=== PATIENT | female | born 1955 | race Caucasian/White ===

== ENCOUNTER 2019-05-03 06:45 | Inpatient (IN) ==
[2019-05-03] MEDS ORDERED: IPRATROPIUM/ALBUTEROL 3 ML AMPUL.NEB NEB ONE ×2 (07:16→08:02)
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
--- NOTE | 2019-05-03 07:53 | XRay Report ---
CLINICAL INFORMATION:Dyspnea TECHNIQUE: AP portable semiupright chest x-ray COMPARISON: None FINDINGS:Lungs are negative. No parenchymal infiltrate or mass. Heart size and vascularity are normal. Yessenia and mediastinum are negative. There is no pleural fluid. No acute abnormality. IMPRESSION: Negative AP portable chest x-ray Interpreted and Authenticated by: Jesús Harman 05/03/19
[2019-05-03 08:18] LABS: Basophils # (Auto) 0 K/mcL (0.0-0.3); Basophils % (Auto) 0 % (0.0-2.0); Eosinophils # (Auto) 0.2 K/mcL (0.0-0.7); Eosinophils % (Auto) 1.6 % (0.0-7.0); Hemoglobin 15.5 g/dL (12.0-15.0); Lymphocytes % (Auto) 7.3 % (15.5-49.0); Mean Cell Volume 93.6 fL (80.0-100.0); Mean Corpuscular HGB Conc 35.2 g/dL (31.0-36.0); Mean Platelet Volume 7.8 fL (7.4-10.4); Monocytes # (Auto) 0.7 K/mcL (0.1-0.9); Monocytes % (Auto) 5.1 % (1.0-12.0); Platelet Count 359 K/mcL (140-440); Red Cell Distribution Width 12.9 % (11.5-14.5); WBC 13.2 K/mcL (4.5-11.0)
[2019-05-03 08:39] LABS: proBNP 512.1 pg/ml (0-125)
[2019-05-03 08:41] LABS: ALT/SGPT 26 U/l (0-40); AST/SGOT 29 U/l (0-37); Albumin 4.9 gm/dL (3.2-5.2); Albumin/Globulin Ratio 1.6 (1.0-2.3); Alkaline Phosphatase 55 U/L (39-117); Bilirubin,Total 0.3 mg/dL (0.0-1.0); Blood Urea Nitrogen 7 mg/dl (8-23); Calcium 10.6 mg/dl (8.6-10.4); Carbon Dioxide 22 mmol/L (22-30); Chloride 93 mmol/L (96-108); Glomerular Filtration Rate 78; Glucose 118 mg/dL (70-105)
[2019-05-03] MEDS ORDERED: methylPREDNISolone SOD SUCC 125 MG/2 ML VIAL IV ONE (08:42)
[2019-05-03] MEDS ORDERED: methylPREDNISolone SOD SUCC 125 MG/2 ML VIAL IM ONE (08:55)
[2019-05-03] MEDS ORDERED: 0.9 % SODIUM CHLORIDE 1,000 ML IV SCH (10:15)
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
[2019-05-03] MEDS ORDERED: POTASSIUM CHLORIDE 20 MEQ TABLET PO PRN ×2 (12:23)
[2019-05-03] MEDS ORDERED: MAGNESIUM SULFATE 2 GM/50 ML BAG IV PRN (12:23)
[2019-05-03] MEDS ORDERED: POTASSIUM CHLORIDE 40 MEQ in DEXTROSE 5% IN WATER 500 ML IV PRN (12:23)
[2019-05-03] MEDS ORDERED: IPRATROPIUM/ALBUTEROL 3 ML AMPUL.NEB NEB PRN (12:23)
[2019-05-03] MEDS ORDERED: LORazepam 2 MG/ML VIAL IV PRN (12:23)
[2019-05-03] MEDS ORDERED: chlordiazePOXIDE 25 MG CAPSULE PO PRN (12:23)
[2019-05-03] MEDS ORDERED: ONDANSETRON 4 MG/2 ML VIAL IV PRN (12:23)
[2019-05-03] MEDS: IPRATROPIUM/ALBUTEROL 3 ML AMPUL.NEB NEB SCH ×2 (13:09→19:24)
[2019-05-03] MEDS: METOCLOPRAMIDE 10 MG TABLET PO SCH ×3 (13:23→21:23)
[2019-05-03] MEDS: guaiFENesin 600 MG TAB.SR.12H PO SCH ×2 (13:23→21:23)
[2019-05-03] MEDS: AZITHROMYCIN 500 MG in DEXTROSE 5% IN WATER 250 ML IV SCH (13:43)
[2019-05-03 13:59] LABS: Appearance,Urine CLEAR; Bacteria,Urine 0 /hpf (0); Bilirubin,Urine NEG (NEG); Color,Urine YELLOW; Culture Indicated,Urine NO; Glucose,Urine (UA) NEGATIVE (NEG); Ketones,Urine 5/TR mg/dL (NEG); Leukocyte Esterase,Urine NEG /uL (NEG); Mucus,Urine FEW /hpf (0); Nitrate,Urine NEG (NEG); Protein,Urine 100 mg/dL (NEG); Urine Blood NEG mg/dL (<0.03); Urine RBC 3 /hpf (0-1); Urine Squamous Epithelial Cell < 1 /hpf (0-4); Urine Transitional Epi Cells < 1 /hpf (0-2); Urine WBC 0 /hpf (0-4); Urobilinogen,Urine NEG (NEG)
[2019-05-03] MEDS ORDERED: 0.9 % SODIUM CHLORIDE 10 ML SYRINGE IV SCH (14:00)
[2019-05-03] MEDS: 0.9 % SODIUM CHLORIDE 10 ML SYRINGE IV SCH ×2 (14:10→21:25)
[2019-05-03 14:32] LABS: Osmolality,Urine 585 mOsm/kg (80-1000)
[2019-05-03 14:44] LABS: Sodium, Urine Random 46 mmol/L
[2019-05-03] MEDS: methylPREDNISolone SOD SUCC 125 MG/2 ML VIAL IV SCH ×2 (15:16→21:25)
[2019-05-03] MEDS: GABAPENTIN 300 MG CAPSULE PO SCH ×2 (15:16→21:24)
[2019-05-03] MEDS: HYDROCODONE/APAP 7.5/325MG TABLET PO PRN (17:16)
[2019-05-04] MEDS: IPRATROPIUM/ALBUTEROL 3 ML AMPUL.NEB NEB SCH ×4 (00:38→19:15)
[2019-05-04] MEDS: methylPREDNISolone SOD SUCC 125 MG/2 ML VIAL IV SCH ×3 (05:57→21:22)
[2019-05-04] MEDS: 0.9 % SODIUM CHLORIDE 10 ML SYRINGE IV SCH ×3 (05:57→21:30)
[2019-05-04 06:11] LABS: Basophils # (Auto) 0 K/mcL (0.0-0.3); Basophils % (Auto) 0 % (0.0-2.0); Eosinophils # (Auto) 0 K/mcL (0.0-0.7); Eosinophils % (Auto) 0.1 % (0.0-7.0); Granulocytes % (Auto) 94.2 % (38.0-78.0); Hematocrit 40.5 % (36.0-48.0); Hemoglobin 13.5 g/dL (12.0-15.0); Lymphocytes # (Auto) 0.8 K/mcL (1.5-4.8); Lymphocytes % (Auto) 4.5 % (15.5-49.0); Mean Cell Volume 97.2 fL (80.0-100.0); Mean Corpuscular HGB Conc 33.4 g/dL (31.0-36.0); Mean Platelet Volume 7.3 fL (7.4-10.4); Monocytes # (Auto) 0.2 K/mcL (0.1-0.9); Monocytes % (Auto) 1.2 % (1.0-12.0); Platelet Count 327 K/mcL (140-440); RBC 4.17 M/mcL (4.00-5.20); Red Cell Distribution Width 13.7 % (11.5-14.5); WBC 17.3 K/mcL (4.5-11.0)
[2019-05-04] MEDS: ACETAMINOPHEN 325 MG TABLET PO PRN (06:26)
[2019-05-04 06:43] LABS: ALT/SGPT 22 U/l (0-40); AST/SGOT 25 U/l (0-37); Albumin 4.2 gm/dL (3.2-5.2); Albumin/Globulin Ratio 1.4 (1.0-2.3); Alkaline Phosphatase 45 U/L (39-117); Bilirubin,Direct < 0.2 mg/dL (0.0-0.3); Bilirubin,Total 0.2 mg/dL (0.0-1.0); Blood Urea Nitrogen 9 mg/dl (8-23); Calcium 9.4 mg/dl (8.6-10.4); Carbon Dioxide 22 mmol/L (22-30); Globulin 2.9 gm/dL (2.2-3.7); Glomerular Filtration Rate 92; Glucose 170 mg/dL (70-105); Lactate Dehydrogenase 262 U/L (94-250); Phosphorous 3.1 mg/dL (2.7-4.5); Triglycerides 31 mg/dl (<150); Uric Acid 3.8 mg/dL (2.5-8.0)
[2019-05-04 06:46] LABS: Chloride 95 mmol/L (96-108)
[2019-05-04] MEDS: OMEPRAZOLE 20 MG CAPSULE PO SCH (07:04)
--- NOTE | 2019-05-04 07:21 | Internal Med Progress Note ---
Medical - PN: Subj Patient information: Note initiated : 05/04/19 at 7:11 am Service Date, if different from initiated Date: [] Patient: Ivory Diaz a 64 y/o F admitted on 05/03/19 for Shortness of breath. Chief Complaint: [] Interval history: Ms. Diaz is a 64 year old F Who reports shortness of breath since Wednesday night. Patient reports Wednesday night show Kamil night with a sore throat cough and shortness of breath. She does have a sick grandchild which has been around lately. She reports that the symptoms of worsened Wednesday and Wednesday she had a hard time sleeping because of the shortness of breath. She denies any chest pain including pleuritic. No syncope. Denies fevers and chills but has been sweaty. Has body aches. Occasional nausea. No headaches In the ED she was originally 88% on room air. Her proBNP was low and chest x-ray was unremarkable. Troponin was negative. And procalcitonin was low. She did feel some improvement after the nebulizer treatment. He is still smoking. COPD is in her chart. She says she is never officially been diagnosed with COPD but is been mentioned by her primary care doctor. She also is hyponatremic and she says her sodium is been low for a long time. EKG does show some mild ST depression lead II, V3-6. f/u EKG somewhat similar but less prominent. She has no chest pain and troponin is negative. Old ED notes at [facility] mentions diffuse ST depressions suggesting chronic findings. 05/04 Complains of cough and shortness of breath/labored breathing at times, but improved from yesterday. Does have a headache as well. Respiratory viral panel only with rhinovirus. It oxygenation. Review of Systems: denies fever/chills/nausea/vomiting/chest or abdominal pain/diarrhea. Otherwise see above. - Constitutional Vitals: Vital Signs Temp Pulse Resp BP Pulse Ox 97.5 F 90 22 138/90 94 05/04/19 04:00 05/04/19 06:52 05/04/19 06:52 05/04/19 04:00 05/04/19 06:52 Period Temp Pulse Resp BP Sys/Aleman Pulse Ox Last 24 Hr 96.8 F-98.7 F 81-114 14-24 98-139/72-90 88-96 Intake and Output 05/03/19 05/04/19 05/04/19 21:59 05:59 13:59 Intake Total 3350 0 Output Total 950 1200 Balance 2400 -1200 Weight 76.793 kg Intake & Output: Intake & Output 05/03/19 05/04/19 05/04/19 21:59 05:59 13:59 Intake Total 3350 0 Output Total 950 1200 Balance 2400 -1200 Weight 76.793 kg Intake: IV 1250 Sodium Chloride 0.9% 1,000 ml @ 1000 500 mls/hr IV .Q2H [facility] Rx#: [id number] Zithromax 500 mg In Dextrose 5% 250 in Water 250 ml @ 250 mls/hr IV Q24H [facility] Rx#:[id number] Oral 2100 0 Output: Void Amount 950 1200 Other: Meal Lunch Percent of Meal Consumed 50% Feeding Ability Independent Urine Appearance Clear Urine Color Bright Yellow Urine Odor Normal # Voids 1 Exam: General: Alert, Awake, No acute Distress Eyes/N/T: EOMI, Head/Neck: neck supple, CV: mildly Tachycardia but regular, No murmurs, Pulm: better aeration today, expiratory wheezing b/l, Abd: soft, nontender, +BS x4 Ext: no clubbing/cyanosis/edema Neuro: Alert, no focal deficits, moves all extremities, Skin: warm/dry Medical - PN: Obj Da - Labs CBC & Chem 7: 05/04/19 04:34 05/04/19 04:34 Labs: Abnormal Lab Results 05/04/19 05/04/19 05/03/19 04:34 04:34 16:36 WBC 17.3 H Hgb MPV 7.3 L Gran % 94.2 H Lymph % (Auto) 4.5 L Gran # 16.3 H Lymph # (Auto) 0.8 L Sodium 130 L Chloride 95 L BUN Glucose 170 H Osmolality 271 L Calcium Magnesium 1.3 L Lactate Dehydrogenase 262 H NT-Pro-B Natriuret Pep Urine Protein Urine Ketones Urine RBC 05/03/19 05/03/19 05/03/19 13:00 13:00 07:27 WBC Hgb MPV Gran % Lymph % (Auto) Gran # Lymph # (Auto) Sodium 130 L Chloride 93 L BUN 7 L Glucose 118 H Osmolality 583 H Calcium 10.6 H Magnesium Lactate Dehydrogenase NT-Pro-B Natriuret Pep 512.1 H Urine Protein 100 A Urine Ketones 5/tr A Urine RBC 3 H 05/03/19 07:27 WBC 13.2 H Hgb 15.5 H MPV Gran % 86.0 H Lymph % (Auto) 7.3 L Gran # 11.3 H Lymph # (Auto) 1.0 L Sodium Chloride BUN Glucose Osmolality Calcium Magnesium Lactate Dehydrogenase NT-Pro-B Natriuret Pep Urine Protein Urine Ketones Urine RBC Meds: Medications Acetaminophen (Tylenol) 650 mg PO Q6HP PRN PRN Reason: PAIN/FEVER > 101 Last Admin: 05/04/19 06:26 Dose: 650 mg Documented by: Hydrocodone Bitart/Acetaminophen ([place] 7.5/325mg) 1 tab PO Q6H PRN; Protocol PRN Reason: pain Last Admin: 05/03/19 17:16 Dose: 1 tab Documented by: Albuterol/Ipratropium (Duoneb) 3 ml NEB Q6HRT [facility] Last Admin: 05/04/19 06:52 Dose: 3 ml Documented by: Albuterol/Ipratropium (Duoneb) 3 ml NEB Q4HP PRN PRN Reason: Shortness Of Breath Atorvastatin Calcium (Lipitor) 20 mg PO QDAY [facility] Chlordiazepoxide HCl (Librium) 25 mg PO Q4HP PRN PRN Reason: Alcohol Withdrawal Cyanocobalamin (Vitamin B-12) 500 mcg PO DAILY [facility] Enoxaparin Sodium (Lovenox) 40 mg SQ DAILY [facility] Folic Acid (Folic Acid) 1 mg PO DAILY [facility] Gabapentin (Neurontin) 600 mg PO TID [facility] Last Admin: 05/03/19 21:24 Dose: 600 mg Documented by: Guaifenesin (Mucinex) 600 mg PO BID [facility] Last Admin: 05/03/19 21:23 Dose: 600 mg Documented by: Potassium Chloride 40 meq/ (Dextrose) 520 mls @ 130 mls/hr IV UD PRN PRN Reason: Potassium < 3 Magnesium Sulfate (Magnesium Sulfate) 2 gm in 50 mls @ 50 mls/hr IV UD PRN PRN Reason: Magnesium </= 1.6 Azithromycin 500 mg/ Dextrose 250 mls @ 250 mls/hr IV Q24H [facility]; Protocol Stop: 05/05/19 13:59 Last Infusion: 05/03/19 14:43 Dose: Infused Documented by: Lorazepam (Ativan) 0 mg IV Q4HP PRN; Protocol PRN Reason: Alcohol Withdrawal Methylprednisolone Sodium Succinate (Solu-Medrol) 62.5 mg IV Q8 [facility] Last Admin: 05/04/19 05:57 Dose: 62.5 mg Documented by: Metoclopramide HCl (Reglan) 5 mg PO QID [facility] Last Admin: 05/03/19 21:23 Dose: 5 mg Documented by: Omeprazole (Prilosec) 40 mg PO QAMAC [facility] Last Admin: 05/04/19 07:04 Dose: 40 mg Documented by: Ondansetron HCl (Zofran) 4 mg IV Q4HP PRN PRN Reason: Nausea And Vomiting Potassium Chloride (Kdur) 40 meq PO UD PRN PRN Reason: Potssium is 3-3.5 Potassium Chloride (Kdur) 40 meq PO UD PRN PRN Reason: Potassium < 3 Sodium Chloride (Saline Flush) 10 ml IV Q8 [facility] Last Admin: 05/04/19 05:57 Dose: 10 ml Documented by: Thiamine HCl (Vitamin B1) 100 mg PO QDAY [facility] Medical - PN: A/P - Time Spent With Patient Total time spent is greater than 50% in coordination of care (as documented) at patient's floor/unit and/or counseling patient: - Narrative A/P Narrative: A: *Acute hypoxic respiratory failure: -resp viral panel with only Rhinovirus *AECOPD: *Hyponatremia: suspect SIADH even though she is on HCTZ (perhaps a component) *Hyponatremia, chronic: *Hypomag: *h/o cluster RENEE: *HTN/HLD: is on BB/HCTZ/Aldactone *Tobacco/Alcohol abuse: *GERD: * P: -Steroids (wean), nebs polly/prn -empiric Abx -IS/Acapella/RT -O2 support wean as able, possible RT eval prior to d/c for home o2 -fluid restrict, salt tabs -CIWA -cont BB -hold diuretics, will not restart HCTZ -f/u with Pulmonology for PFT's -ppx: Lovenox DNR
[2019-05-04 08:32] LABS: Band Neutrophils % 7 % (0-10); Lymphocytes % 5 % (15-49); Platelet Estimate NORMAL (NORMAL); RBC Morphology NORMAL (NORMAL); Segmented Neutrophils % 88 % (38-78)
[2019-05-04] MEDS ORDERED: LORATADINE 10 MG TABLET PO ONE (08:46)
[2019-05-04] MEDS ORDERED: BENZOCAINE/MENTHOL 1 LOZENGE PO PRN (08:46)
[2019-05-04] MEDS ORDERED: NON FORMULARY MEDICATION 1 DOSE MISCELL (Cyanocobalamin/Folic Acid [Vitamin B12-Folic Acid PO SCH (09:00)
[2019-05-04] MEDS ORDERED: MELATONIN 3 MG TABLET PO SCH (09:00)
[2019-05-04] MEDS: ATORVASTATIN 20 MG TABLET PO SCH (09:06)
[2019-05-04] MEDS: GABAPENTIN 300 MG CAPSULE PO SCH ×3 (09:06→20:54)
[2019-05-04] MEDS: THIAMINE 100 MG TABLET PO SCH (09:07)
[2019-05-04] MEDS: METOCLOPRAMIDE 10 MG TABLET PO SCH ×4 (09:07→20:55)
[2019-05-04] MEDS: FOLIC ACID 1 MG TABLET PO SCH (09:07)
[2019-05-04] MEDS: CYANOCOBALAMIN (VITAMIN B-12) 500 MCG TABLET PO SCH (09:07)
[2019-05-04] MEDS: SODIUM CHLORIDE 1 GM TABLET PO SCH ×3 (09:08→20:55)
[2019-05-04] MEDS: BISOPROLOL 5 MG TABLET PO SCH (09:09)
[2019-05-04] MEDS: guaiFENesin 600 MG TAB.SR.12H PO SCH ×2 (09:09→20:54)
[2019-05-04] MEDS: ENOXAPARIN 40 MG/0.4 ML SYRINGE SQ SCH (09:10)
[2019-05-04] MEDS: AZITHROMYCIN 500 MG in DEXTROSE 5% IN WATER 250 ML IV SCH (09:23)
[2019-05-04] MEDS: HYDROCODONE/APAP 7.5/325MG TABLET PO PRN (20:55)
[2019-05-05] MEDS: IPRATROPIUM/ALBUTEROL 3 ML AMPUL.NEB NEB SCH ×4 (01:19→18:33)
[2019-05-05] MEDS: ACETAMINOPHEN 325 MG TABLET PO PRN (05:28)
[2019-05-05] MEDS: 0.9 % SODIUM CHLORIDE 10 ML SYRINGE IV SCH ×3 (05:28→21:08)
[2019-05-05] MEDS: methylPREDNISolone SOD SUCC 125 MG/2 ML VIAL IV SCH (05:28)
[2019-05-05 05:29] LABS: Hematocrit 39.9 % (36.0-48.0); Hemoglobin 13.2 g/dL (12.0-15.0); Mean Cell Volume 98.1 fL (80.0-100.0); Mean Platelet Volume 7.3 fL (7.4-10.4); Platelet Count 329 K/mcL (140-440); RBC 4.07 M/mcL (4.00-5.20); Red Cell Distribution Width 13.5 % (11.5-14.5)
[2019-05-05 05:50] LABS: Band Neutrophils % 4 % (0-10); Lymphocytes % 6 % (15-49); Monocytes % (Manual) 3 % (1-12); Platelet Estimate NORMAL (NORMAL); RBC Morphology NORMAL (NORMAL); Segmented Neutrophils % 87 % (38-78)
[2019-05-05 05:52] LABS: ALT/SGPT 23 U/l (0-40); AST/SGOT 24 U/l (0-37); Albumin 3.7 gm/dL (3.2-5.2); Albumin/Globulin Ratio 1.3 (1.0-2.3); Alkaline Phosphatase 41 U/L (39-117); Bilirubin,Direct < 0.2 mg/dL (0.0-0.3); Bilirubin,Total < 0.2 mg/dL (0.0-1.0); Blood Urea Nitrogen 14 mg/dl (8-23); Calcium 8.9 mg/dl (8.6-10.4); Carbon Dioxide 22 mmol/L (22-30); Chloride 96 mmol/L (96-108); Globulin 2.8 gm/dL (2.2-3.7); Glomerular Filtration Rate 78; Glucose 145 mg/dL (70-105); Lactate Dehydrogenase 213 U/L (94-250); Triglycerides 42 mg/dl (<150); Uric Acid 3.4 mg/dL (2.5-8.0)
[2019-05-05] MEDS: CYANOCOBALAMIN (VITAMIN B-12) 500 MCG TABLET PO SCH (07:49)
[2019-05-05] MEDS: THIAMINE 100 MG TABLET PO SCH (07:49)
[2019-05-05] MEDS: ATORVASTATIN 20 MG TABLET PO SCH (07:49)
[2019-05-05] MEDS: FOLIC ACID 1 MG TABLET PO SCH (07:49)
[2019-05-05] MEDS: guaiFENesin 600 MG TAB.SR.12H PO SCH ×2 (07:49→21:08)
[2019-05-05] MEDS: SODIUM CHLORIDE 1 GM TABLET PO SCH ×3 (07:49→21:08)
[2019-05-05] MEDS: BISOPROLOL 5 MG TABLET PO SCH (07:49)
[2019-05-05] MEDS: ENOXAPARIN 40 MG/0.4 ML SYRINGE SQ SCH (07:50)
[2019-05-05] MEDS: GABAPENTIN 300 MG CAPSULE PO SCH ×3 (07:50→21:08)
[2019-05-05] MEDS: METOCLOPRAMIDE 10 MG TABLET PO SCH ×4 (07:50→21:08)
[2019-05-05] MEDS: OMEPRAZOLE 20 MG CAPSULE PO SCH (07:50)
[2019-05-05] MEDS ORDERED: predniSONE 20 MG TABLET PO ONE (08:57)
--- NOTE | 2019-05-05 09:03 | Internal Med Progress Note ---
Medical - PN: Subj Patient information: Note initiated : 05/05/19 at 8:57 am Service Date, if different from initiated Date: [] Patient: Ivory Diaz a 64 y/o F admitted on 05/03/19 for Shortness of breath. Chief Complaint: [] Interval history: Ms. Diaz is a 64 year old F Who reports shortness of breath since Wednesday night. Patient reports Wednesday night show Kamil night with a sore throat cough and shortness of breath. She does have a sick grandchild which has been around lately. She reports that the symptoms of worsened Wednesday and Wednesday she had a hard time sleeping because of the shortness of breath. She denies any chest pain including pleuritic. No syncope. Denies fevers and chills but has been sweaty. Has body aches. Occasional nausea. No headaches In the ED she was originally 88% on room air. Her proBNP was low and chest x-ray was unremarkable. Troponin was negative. And procalcitonin was low. She did feel some improvement after the nebulizer treatment. He is still smoking. COPD is in her chart. She says she is never officially been diagnosed with COPD but is been mentioned by her primary care doctor. She also is hyponatremic and she says her sodium is been low for a long time. EKG does show some mild ST depression lead II, V3-6. f/u EKG somewhat similar but less prominent. She has no chest pain and troponin is negative. Old ED notes at [facility] mentions diffuse ST depressions suggesting chronic findings. 05/04 Complains of cough and shortness of breath/labored breathing at times, but improved from yesterday. Does have a headache as well. Respiratory viral panel only with rhinovirus. It oxygenation. 05/05-patient seen in room along with . Doing well. Now on room air. Persistent cough on minimal exertion along with worsening dyspnea. Transition to oral steroids. Anticipate discharge in 24 hours pending clinical improvement. Continue PT OT nutrition support. - Constitutional Vitals: Vital Signs Temp Pulse Resp BP Pulse Ox 97.7 F 77 18 127/77 92 05/05/19 07:26 05/05/19 07:07 05/05/19 07:26 05/05/19 07:26 05/05/19 07:26 Period Temp Pulse Resp BP Sys/Aleman Pulse Ox Last 24 Hr 97.7 F-98.5 F 71-104 14-90 108-140/70-88 90-98 Intake and Output 05/04/19 05/05/19 05/05/19 21:59 05:59 13:59 Intake Total 100 300 240 Output Total 850 1000 Balance -750 -700 240 Weight 169 lb 11.2 oz Intake & Output: Intake & Output 05/04/19 05/05/19 05/05/19 21:59 05:59 13:59 Intake Total 100 300 240 Output Total 850 1000 Balance -750 -700 240 Weight 169 lb 11.2 oz Intake: Oral 100 300 240 Output: Void Amount 850 1000 Other: Meal Breakfast Percent of Meal Consumed 100% Urine Appearance Clear Urine Color Bright Yellow Bright Yellow General appearance: no acute distress Exam: Alert oriented Minimally labored breathing No anxiety No lymphedema Medical - PN: Obj Da - Labs CBC & Chem 7: 05/05/19 04:17 05/05/19 04:17 Labs: Abnormal Lab Results 05/05/19 05/05/19 05/04/19 04:17 04:17 04:34 WBC 23.0 H Hgb MPV 7.3 L Gran % Lymph % (Auto) Gran # Lymph # (Auto) Seg Neutrophils % 87 H 88 H Lymphocytes % 6 L 5 L Sodium 131 L Chloride BUN Glucose 145 H Osmolality Calcium Magnesium Lactate Dehydrogenase NT-Pro-B Natriuret Pep Urine Protein Urine Ketones Urine RBC 05/04/19 05/04/19 05/03/19 04:34 04:34 16:36 WBC 17.3 H Hgb MPV 7.3 L Gran % 94.2 H Lymph % (Auto) 4.5 L Gran # 16.3 H Lymph # (Auto) 0.8 L Seg Neutrophils % Lymphocytes % Sodium 130 L Chloride 95 L BUN Glucose 170 H Osmolality 271 L Calcium Magnesium 1.3 L Lactate Dehydrogenase 262 H NT-Pro-B Natriuret Pep Urine Protein Urine Ketones Urine RBC 05/03/19 05/03/19 05/03/19 13:00 13:00 07:27 WBC Hgb MPV Gran % Lymph % (Auto) Gran # Lymph # (Auto) Seg Neutrophils % Lymphocytes % Sodium 130 L Chloride 93 L BUN 7 L Glucose 118 H Osmolality 583 H Calcium 10.6 H Magnesium Lactate Dehydrogenase NT-Pro-B Natriuret Pep 512.1 H Urine Protein 100 A Urine Ketones 5/tr A Urine RBC 3 H 05/03/19 07:27 WBC 13.2 H Hgb 15.5 H MPV Gran % 86.0 H Lymph % (Auto) 7.3 L Gran # 11.3 H Lymph # (Auto) 1.0 L Seg Neutrophils % Lymphocytes % Sodium Chloride BUN Glucose Osmolality Calcium Magnesium Lactate Dehydrogenase NT-Pro-B Natriuret Pep Urine Protein Urine Ketones Urine RBC Meds: Medications Acetaminophen (Tylenol) 650 mg PO Q6HP PRN PRN Reason: PAIN/FEVER > 101 Last Admin: 05/05/19 05:28 Dose: 650 mg Documented by: Hydrocodone Bitart/Acetaminophen ([place] 7.5/325mg) 1 tab PO Q6H PRN; Protocol PRN Reason: pain Last Admin: 05/04/19 20:55 Dose: 1 tab Documented by: Albuterol/Ipratropium (Duoneb) 3 ml NEB Q6HRT [facility] Last Admin: 05/05/19 07:06 Dose: 3 ml Documented by: Albuterol/Ipratropium (Duoneb) 3 ml NEB Q4HP PRN PRN Reason: Shortness Of Breath Atorvastatin Calcium (Lipitor) 20 mg PO QDAY [facility] Last Admin: 05/05/19 07:49 Dose: 20 mg Documented by: Bisoprolol Fumarate (Zebeta) 10 mg PO DAILY [facility] Last Admin: 05/05/19 07:49 Dose: 10 mg Documented by: Chlordiazepoxide HCl (Librium) 25 mg PO Q4HP PRN PRN Reason: Alcohol Withdrawal Cyanocobalamin (Vitamin B-12) 500 mcg PO DAILY [facility] Last Admin: 05/05/19 07:49 Dose: 500 mcg Documented by: Enoxaparin Sodium (Lovenox) 40 mg SQ DAILY [facility] Last Admin: 05/05/19 07:50 Dose: 40 mg Documented by: Folic Acid (Folic Acid) 1 mg PO DAILY [facility] Last Admin: 05/05/19 07:49 Dose: 1 mg Documented by: Gabapentin (Neurontin) 600 mg PO TID [facility] Last Admin: 05/05/19 07:50 Dose: 600 mg Documented by: Guaifenesin (Mucinex) 600 mg PO BID [facility] Last Admin: 05/05/19 07:49 Dose: 600 mg Documented by: Potassium Chloride 40 meq/ (Dextrose) 520 mls @ 130 mls/hr IV UD PRN PRN Reason: Potassium < 3 Magnesium Sulfate (Magnesium Sulfate) 2 gm in 50 mls @ 50 mls/hr IV UD PRN PRN Reason: Magnesium </= 1.6 Last Infusion: 05/04/19 09:15 Dose: Infused Documented by: Azithromycin 500 mg/ Dextrose 250 mls @ 250 mls/hr IV Q24H [facility]; Protocol Stop: 05/05/19 13:59 Last Infusion: 05/04/19 10:24 Dose: Infused Documented by: Lorazepam (Ativan) 0 mg IV Q4HP PRN; Protocol PRN Reason: Alcohol Withdrawal Last Admin: 05/04/19 07:52 Dose: 1 mg Documented by: Melatonin (Melatonin 3mg Tablet) 3 mg PO HSP [facility] Methylprednisolone Sodium Succinate (Solu-Medrol) 40 mg IV Q8 [facility] Last Admin: 05/05/19 05:28 Dose: 40 mg Documented by: Metoclopramide HCl (Reglan) 5 mg PO QID [facility] Last Admin: 05/05/19 07:50 Dose: 5 mg Documented by: Omeprazole (Prilosec) 40 mg PO QAMAC [facility] Last Admin: 05/05/19 07:50 Dose: 40 mg Documented by: Ondansetron HCl (Zofran) 4 mg IV Q4HP PRN PRN Reason: Nausea And Vomiting Potassium Chloride (Kdur) 40 meq PO UD PRN PRN Reason: Potssium is 3-3.5 Potassium Chloride (Kdur) 40 meq PO UD PRN PRN Reason: Potassium < 3 Sodium Chloride (Saline Flush) 10 ml IV Q8 [facility] Last Admin: 05/05/19 05:28 Dose: 10 ml Documented by: Sodium Chloride (Sodium Chloride) 1 gm PO TID [facility] Last Admin: 05/05/19 07:49 Dose: 1 gm Documented by: Thiamine HCl (Vitamin B1) 100 mg PO QDAY [facility] Last Admin: 05/05/19 07:49 Dose: 100 mg Documented by: Throat Lozenges (Cepacol) 1 lozenge PO PRN PRN PRN Reason: Sore Throat Last Admin: 05/04/19 14:34 Dose: 1 lozenge Documented by: Medical - PN: A/P - Time Spent With Patient Total time spent is greater than 50% in coordination of care (as documented) at patient's floor/unit and/or counseling patient: 15 - 24 minutes (1) COPD with acute exacerbation Status: Acute Assessment and plan: * Acute exacerbation of COPD-responded well to steroids/antibiotic/bronchodilators and IV steroids. * Acute hypoxic respiratory failure secondary COPD exacerbation. Clinically resolved with aggressive bronchodilators and management as above. Currently on room air. * Hyponatremia, chronic since 2013. Secondary to thiazide/spironolactone use. Not a concern in light of chronicity of hyponatremia and reset osmostat in the setting of continued natriuresis from thiazide/spironolactone use. * History of hypertension on beta-ethan/Aldactone * Tobacco dependence/alcohol dependence-no signs of withdrawal * History of GERD continue PPI * Neuropathy continue gabapentin * Hyperlipidemia continue statin * History of migraine continue rizatriptan as needed. No acute flare * Full code * Prophylaxis Lovenox Plan * Transition to oral steroids * DC fluid restriction * Continue COPD management * Smoking cessation counseling * Prior medical issues management on home medications as above * Discharge planning Current Visit: Yes
[2019-05-05] MEDS: AZITHROMYCIN 500 MG in DEXTROSE 5% IN WATER 250 ML IV SCH (09:49)
[2019-05-05] MEDS: HYDROCODONE/APAP 7.5/325MG TABLET PO PRN (17:53)
[2019-05-06] MEDS: IPRATROPIUM/ALBUTEROL 3 ML AMPUL.NEB NEB SCH ×2 (00:33→06:30)
[2019-05-06] MEDS: ACETAMINOPHEN 325 MG TABLET PO PRN (03:42)
[2019-05-06] MEDS: 0.9 % SODIUM CHLORIDE 10 ML SYRINGE IV SCH (05:44)
[2019-05-06] MEDS ORDERED: predniSONE 20 MG TABLET PO SCH (08:00)
[2019-05-06] MEDS: ENOXAPARIN 40 MG/0.4 ML SYRINGE SQ SCH (08:57)
[2019-05-06] MEDS: OMEPRAZOLE 20 MG CAPSULE PO SCH (08:57)
[2019-05-06] MEDS: FOLIC ACID 1 MG TABLET PO SCH (08:58)
[2019-05-06] MEDS: THIAMINE 100 MG TABLET PO SCH (08:59)
[2019-05-06] MEDS: GABAPENTIN 300 MG CAPSULE PO SCH (09:00)
[2019-05-06] MEDS: ATORVASTATIN 20 MG TABLET PO SCH (09:00)
[2019-05-06] MEDS: CYANOCOBALAMIN (VITAMIN B-12) 500 MCG TABLET PO SCH (09:00)
[2019-05-06] MEDS: guaiFENesin 600 MG TAB.SR.12H PO SCH (09:00)
[2019-05-06] MEDS: BISOPROLOL 5 MG TABLET PO SCH (09:01)
[2019-05-06] MEDS: METOCLOPRAMIDE 10 MG TABLET PO SCH (09:08)
[2019-05-06] MEDS: SODIUM CHLORIDE 1 GM TABLET PO SCH (09:09)
[2019-05-06 09:29] LABS: Hematocrit 42.9 % (36.0-48.0); Hemoglobin 14.2 g/dL (12.0-15.0); Mean Cell Volume 97.8 fL (80.0-100.0); Mean Corpuscular HGB Conc 33.2 g/dL (31.0-36.0); Mean Platelet Volume 7.1 fL (7.4-10.4); Platelet Count 353 K/mcL (140-440); RBC 4.39 M/mcL (4.00-5.20); Red Cell Distribution Width 13.4 % (11.5-14.5); WBC 15.9 K/mcL (4.5-11.0)
--- NOTE | 2019-05-06 09:46 | Discharge Summary ---
Medical - DS: Prov Patient information: Note initiated : 05/06/19 at 9:42 am Service Date, if different from initiated Date: [] Patient: Ivory Diaz 64 y/o F admitted on 05/03/19 for Shortness of breath. Chief Complaint: [] Date of admission: 05/03/19 12:02 Discharge date: 05/06/19 Primary care physician: Herminio Martinez Consults: 05/03/19 Consult to Physician [CONS] Stat Comment: Consulting Provider: Reza Corral Reason For Exam: Physician to Consult Medical - DS: Meds - Discharge Medications Prescriptions: Levofloxacin [Levaquin] 750 mg PO DAILY #3 tab Transmission Status: Pending to [facility] predniSONE [Prednisone] 40 mg PO [facility] #8 tab Transmission Status: Pending to [facility] Active and Home Medications: Home Medications folic acid 400 mcg tablet 400 mcg PO QDAY 09/11/15 [History Confirmed 05/03/19 Last Taken Unknown] omega-3 fatty acids-fish oil 684 mg-1,200 mg capsule,delayed release 1 cap PO QDAY cap 09/11/15 [History Confirmed 05/03/19 Last Taken Unknown] pyridoxine (vitamin B6) 50 mg tablet 50 mg PO QDAY 09/11/15 [History Confirmed 05/03/19 Last Taken Unknown] rizatriptan 10 mg tablet 10 mg PO PRN PRN 09/11/15 [History Confirmed 05/03/19 Last Taken Unknown] vitamin B complex 1 tab-cap PO QDAY 09/11/15 [History Confirmed 05/03/19 Last Taken Unknown] vitamin B12 500 mcg-folic acid 400 mcg tablet 1 tab PO QDAY 09/11/15 [History Confirmed 05/03/19 Last Taken Unknown] guaifenesin 400 mg tablet 400 mg PO Q4H PRN #30 tab 03/27/16 [Rx Confirmed 05/03/19 Last Taken Unknown] hydrocodone 7.5 mg-acetaminophen 325 mg tablet 1 tab PO Q6H PRN #90 tab 04/28/17 [Rx Confirmed 05/03/19 Last Taken Unknown] potassium chloride 10 mEq capsule,extended release 20 meq PO QDAY #180 cap 10/06/17 [Rx Confirmed 05/03/19 Last Taken 05/03/19 06:00] epinephrine 0.3 mg/0.3 mL injection, auto-injector 0.3 mg IM Q10-15M PRN #2 each 11/23/17 [Rx Confirmed 05/03/19 Last Taken Unknown] cholecalciferol (vitamin D3) 50 mcg (2,000 unit) capsule 2,000 unit PO QDAY #90 cap 05/23/18 [Rx Confirmed 05/03/19 Last Taken 05/03/19 06:00] atorvastatin 20 mg tablet 20 mg PO QDAY #90 tab 05/25/18 [Rx Confirmed 05/03/19 Last Taken 05/02/19 18:30] bisoprolol 10 mg-hydrochlorothiazide 6.25 mg tablet 1 tab PO QHS #90 tab 05/25/18 [Rx Confirmed 05/03/19 Last Taken 05/02/19 18:30] gabapentin 300 mg capsule 600 mg PO TID #540 cap 05/25/18 [Rx Confirmed 05/03/19 Last Taken 05/03/19 06:00] ibandronate 150 mg tablet 150 mg PO QMONTH #12 tab 05/25/18 [Rx Confirmed 05/03/19 Last Taken Unknown] omeprazole 40 mg capsule,delayed release 40 mg PO QDAY #90 cap 05/25/18 [Rx Confirmed 05/03/19 Last Taken 05/03/19 06:00] spironolactone 100 mg tablet 100 mg PO BID #180 tab 05/25/18 [Rx Confirmed 05/03/19 Last Taken 05/03/19 06:00] Metoclopramide [Reglan] 5 mg PO TIDAC 05/03/19 [History Confirmed 05/03/19 Last Taken 05/03/19 06:00] Ondansetron [Zofran ODT] 8 mg PO Q6H 05/03/19 [History Confirmed 05/03/19 Last Taken Unknown] Levofloxacin [Levaquin] 750 mg PO DAILY #3 tab 05/06/19 [Rx Last Taken Unknown] predniSONE [Prednisone] 40 mg PO QAMCC #8 tab 05/06/19 [Rx Last Taken Unknown] Medical - DS: Hosp Hospital Course: Discharge diagnosis * Acute exacerbation of COPD-responded well to steroids/antibiotic/bronchodilators. Continue additional 4 days oral steroids in 3 days antibiotic * Acute hypoxic respiratory failure secondary COPD exacerbation. Clinically resolved now on room air. * Hyponatremia chronic secondary to spironolactone/thiazide use. Stable. * History of hypertension on beta-ethan/Aldactone * alcohol dependence-no signs of withdrawal * Tobacco dependence counseled for cessation * History of GERD managed on PPI * Neuropathy managed on gabapentin * Hyperlipidemia managed on statin * History of migraine managed on rizatriptan as needed. No acute flare Brief hospital course Ms. Diaz is a 64 year old F Who reports shortness of breath since Wednesday night. Patient reports Wednesday night show Kam night with a sore throat cough and shortness of breath. She does have a sick grandchild which has been around lately. She reports that the symptoms of worsened Wednesday and Wednesday she had a hard time sleeping because of the shortness of breath. She denies any chest pain including pleuritic. No syncope. Denies fevers and chills but has been sweaty. Has body aches. Occasional nausea. No headaches In the ED she was originally 88% on room air. Her proBNP was low and chest x-ray was unremarkable. Troponin was negative. And procalcitonin was low. She did feel some improvement after the nebulizer treatment. He is still smoking. COPD is in her chart. She says she is never officially been diagnosed with COPD but is been mentioned by her primary care doctor. She also is hyponatremic and she says her sodium is been low for a long time. EKG does show some mild ST depression lead II, V3-6. f/u EKG somewhat similar but less prominent. She has no chest pain and troponin is negative. Old ED notes at [facility] mentions diffuse ST depressions suggesting chronic findings. 05/04 Complains of cough and shortness of breath/labored breathing at times, but improved from yesterday. Does have a headache as well. Respiratory viral panel only with rhinovirus. It oxygenation. 05/05-patient seen in room along with . Doing well. Now on room air. Persistent cough on minimal exertion along with worsening dyspnea. Transition to oral steroids. Anticipate discharge in 24 hours pending clinical improvement. Continue PT OT nutrition support. 05/06-patient doing well. No overnight events. at bedside. Much improved cough and shortness of breath. On room air. Counseled about smoking cessation. Discharging additional 4 days of oral prednisone along with 3 days antibiotic. Discharge instructions as below. Discharge diagnosis: . - Time Spent with Patient Total time spent providing and/or coordinating discharge services: Greater than 30 minutes Medical - DS: Exam - Constitutional Vitals: Vital Signs Temp Pulse Pulse Resp BP Pulse Ox 05/06/19 09:12 96.1 F L 100 H 18 125/74 95 05/06/19 08:20 83 22 05/06/19 03:44 97.8 F 83 28 H 147/89 94 05/06/19 00:00 98.1 F 72 16 132/78 93 05/05/19 21:00 97.8 F 16 118/71 97 05/05/19 20:00 97 05/05/19 16:25 96.9 F L 18 128/78 97 05/05/19 13:09 83 14 92 05/05/19 13:05 80 14 05/05/19 13:00 97.4 F 18 144/85 95 Intake and Output 05/05/19 05/06/19 05/06/19 21:59 05:59 13:59 Intake Total 120 150 Output Total 1300 1350 Balance -1180 -1200 Intake: Oral 120 150 Output: Void Amount 1300 1350 Other: Meal Dinner Percent of Meal Consumed 75% Feeding Ability Independent Urine Appearance Clear Clear Urine Color Bright Yellow Straw Urine Odor Normal Weight 174 lb 4.8 oz Medical - DS: Data Labs on day of discharge: Labs from last 24 hours 05/06/19 08:45 WBC 15.9 H RBC 4.39 Hgb 14.2 Hct 42.9 MCV 97.8 MCH 32.4 MCHC 33.2 RDW 13.4 Plt Count 353 MPV 7.1 L Total Counted Pending Band Neutrophils % Not Reportable Platelet Estimate Pending RBC Morphology Pending Medical - DS: A/P - Patient/Caregiver Discharge Instructions Activity: as per physical therapy, increase activity as tolerated Diet: Regular Diet Additional Instructions: Continue steroids for additional 4 days antibiotics for 3 days Return to ER if worsening shortness of breath fever chills Follow primary care physician 5 to 7 days Continue tobacco cessation Prescriptions: Levofloxacin [Levaquin] 750 mg PO DAILY #3 tab Transmission Status: Pending to [facility] predniSONE [Prednisone] 40 mg PO [facility] #8 tab Transmission Status: Pending to [facility] - Problem Maintenance (1) COPD with acute exacerbation Status: Acute - Follow up Plan Follow up with: Herminio Martinez MD [Primary Care Provider] - Disposition: Home, Self-Care Prognosis: Fair Rehab Potential: Fair I certify that the patient requires SNF services: No Overall status at discharge: patient is progressing back to baseline
[2019-05-06 10:00] LABS: Lymphocytes % 21 % (15-49); Monocytes % (Manual) 4 % (1-12); Platelet Estimate NORMAL (NORMAL); RBC Morphology NORMAL (NORMAL); Reactive Lymphocytes 1 % (0-2); Segmented Neutrophils % 74 % (38-78)
== END 2019-05-06 11:20 | disposition home or self-care (01) | DRG 190 ==
LOC: ED 06:45 → MEDSUR 12:00
PROVIDERS: ADMIT Internal Medicine; ATTEND Internal Medicine